=== PATIENT | female | born 1945 | race Caucasian/White ===

== ENCOUNTER 2016-09-01 02:50 | Observation (INO) | payer MEDICARE ==
[2016-09-01] MEDS ORDERED: ONDANSETRON HCL 4 MG/2 ML VIAL ONE ×3 (03:15→08:35)
[2016-09-01 03:27] LABS: BASOPHILS 0.2 % (0.0-2.0); EOSINOPHILS 0.7 % (0.0-6.0); EOSINOPHILS# 0.1 X 10^3uL (0.0-0.4); HEMATOCRIT 46.4 % (36.0-48.0); HEMOGLOBIN 15.9 g/dL (12.0-16.0); LYMPHOCYTES 6.8 % (20.0-40.0); LYMPHOCYTES# 0.7 X 10^3uL (0.8-3.8); MEAN CELL VOLUME 86.7 fL (80.0-100.0); MEAN CORPUS. HGB CONCENTRATION 34.4 g/dL (32.0-36.0); MEAN CORPUSCULAR HEMOGLOBIN 29.8 pg (29.0-35.0); MEAN PLATELET VOLUME 8.7 fL (7.4-10.4); MONOCYTES 4.9 % (2.0-10.0); MONOCYTES# 0.5 X 10^3uL (0.2-1.0); NEUTROPHILS# 9.5 X 10^3uL (2.6-6.7); RED BLOOD COUNT 5.35 X 10^6uL (4.20-6.10); RED CELL DISTRIBUTION WIDTH 11.6 % (11.5-14.5); WHITE BLOOD COUNT 10.8 X 10^3uL (3.9-10.7)
[2016-09-01 03:33] LABS: ALBUMIN 4.6 g/dL (3.5-5.0); BILIRUBIN, DIRECT 0.2 mg/dL (0.0-0.4); BILIRUBIN, TOTAL 0.8 mg/dL (0.2-1.3); CALCIUM 9.8 mg/dL (8.4-10.2); POTASSIUM 3.6 mmol/L (3.5-5.1)
[2016-09-01 03:34] LABS: NEUTROPHILS 87.4 % (54.0-75.0)
[2016-09-01] MEDS ORDERED: NORMAL SALINE 500 ML IV ONE (04:27)
--- NOTE | 2016-09-01 07:50 | CT REPORT ---
HISTORY: Diffuse abdominal pain with nausea and vomiting. COMPARISON: None. TECHNIQUE: This examination was performed using automated exposure control, adjustment of mA or kV according to patient size, and/or use of iterative reconstruction technique. Multiple contiguous axial images were obtained from the lung bases through the pubic symphysis following administration of intravenous con trast. 100cc Isovue contrast. FINDINGS: The lung bases are clear. No effusions. No hiatal hernia. There are fluid-filled dilated loops of small bowel in the right abdomen. This is accompanied with so me scattered small mesenteric lymph nodes and mild mesenteric edema. There is no john bowel obstruct ion. No free air or free fluid. No pneumatosis. A normal appendix is not definitively visualized. The colon remains decompressed. The liver, spleen, pancreas and adrenals are normal. No renal mass or hydronephrosis. No abdominal ao rtic aneurysm or retroperitoneal lymphadenopathy. Scans of the pelvis demonstrate no focal mass or free fluid. No destructive or blastic osseous proces s. IMPRESSION: 1. Findings suggesting enteritis and/or mild ileus. Results were discussed with Dr. Glasgow on September 01, 2016. Final Electronic Signature: This report was electronically signed by Lalo Salcido MD on 09/01/2016 7:4 8 AM. sross /
[2016-09-01] MEDS ORDERED: HOME MEDICATION LIST NEEDED 1 EA EACH MC ONE (08:42)
[2016-09-01] MEDS ORDERED: NORMAL SALINE 1,000 ML IV SCH (09:00)
--- NOTE | 2016-09-01 09:48 | ER NURSING DOCUMENTATION ---
Nurse's Notes [facility] Name:Regina Alcala Age:70 yrs Sex:Female :1945 Arrival Date:09/01/2016 Time:02:50 Bed4 Private MD:Physician, No Diagnosis:Abdominal Pain, Unspecified;Vomiting - Dehydration Presentation: 09/01 02:53 Acuity: KARL 3 sc1 02:54 Presenting complaint: Patient states: nausea and vomiting for the last 2 hours. Vomited sc1 approx. 6-7 times. Denies diarrhea. Transition of care: Home. Notified ED Physician of patient's arrival and CC Dr. Jewell notified. 02:54 Method Of Arrival: Private Vehicle sc1 Triage Assessment: 02:59 General: Appears in no apparent distress, well developed, well nourished, well groomed, sc1 Behavior is cooperative, pleasant. Pain: Complains of pain in abdomen. GI: Reports nausea, vomiting. Historical: - Allergies: PENICILLINS; Erythromycin; Morphine; - Home Meds: 1. None - PMHx: Breast CA; - PSHx: Appendectomy; MASTECTOMY, LEFT; MASTECTOMY, RIGHT; - Tetanus: < 10 years. - Ebola Screening: : Patient negative for fever greater than or equal to 101.5 degrees Fahrenheit, and additional compatible Ebola Virus Disease symptoms. Patient denies exposure to infectious person. Patient denies travel to an Ebola-affected area in the 21 days before illness onset. No symptoms or risks identified at this time. . - Immunization history: Pneumococcal vaccine is up to date, Flu Vaccine < 1 year. - Social history: Smoking status: Patient states was never smoker of tobacco. Patient/guardian denies using alcohol, street drugs, IV drugs, marijuana. Screenin:09 Infectious Disease Risk None. Abuse screen: Denies threats or abuse. Nutritional sc1 screening: No deficits noted. Assessment: 07:25 General: pt appears to be sleeping.. st 09:30 General: pt resting quietly states she is feeling much better.. st Vital Signs: 03:00 BP 147 / 93; Pulse 112; Resp 18; Temp 97.6; Pulse Ox 92% on R/A; sc1 06:04 Pulse Ox 94% on 2 lpm NC; st 08:26 BP 146 / 88 (auto/); st 08:27 BP 146 / 88; Pulse 118; Pulse Ox 90% on R/A; Pain 10/10; st 08:30 BP 128 / 85 (auto/); st 08:34 Pulse Ox 91% ; st 09:27 BP 129 / 86 (auto/); Pulse Ox 92% on R/A; st 09:30 Pain 0/10; st Louann Coma Score: 03:00 Eye Response: spontaneous(4). Verbal Response: oriented(5). Motor Response: obeys cd commands(6). Total: 15. ED Course: 02:51 Patient arrived in ED. em2 02:51 Physician, No is Private Physician. em2 02:53 Krissy Ramirez, RN is Primary Nurse. sc1 02:53 Triage completed. sc1 03:00 Notified ED Physician of patient's arrival and chief complaint. Dr. Jewell notified. sc1 Allergy Band Placed Arm band placed on Bed in low position Call Light in Reach Gowned HOB Elevated. 03:05 Inserted saline lock: 20 gauge in left antecubital area and blood collected. em1 03:20 Jayjay Jewell MD is Attending Physician. cd 06:[address] dnn 06:54 Patient moved back from [place]. dnn 08:18 Dennis Farmer MD is Admitting Physician. cd 08:49 Patient moved to [facility]. mk 09:14 Patient moved back from [facility]. mk Administered Medications: 03:09 Drug: NS 0.9% 1000 ml; Route: IV; Rate: bolus; Site: left antecubital; Delivery: sc1 Raywick Tubing; 04:11 Follow up: IV Status: Completed infusion; IV Intake: 1000ml sc1 03:09 Drug: Zofran 4 mg; Route: IVP; Infused Over: 2 mins; Site: left antecubital; sc1 04:53 Follow up: Response: No adverse reaction; Nausea is decreased sc1 04:11 Drug: NS 0.9% 500 ml; Route: IV; Rate: bolus; Site: left antecubital; Delivery: Raywick sc1 Tubing; 04:50 Follow up: IV Status: Completed infusion; IV Intake: 500ml sc1 04:50 Drug: NS 0.9% 1000 ml; Route: IV; Rate: 150 ml/hr; Site: left antecubital; Delivery: sc1 Raywick Tubing; 09:47 Follow up: IV Status: Completed infusion; IV Intake: 1000ml st 05:15 Drug: Zofran 4 mg; Route: IVP; Infused Over: 2 mins; Site: left antecubital; de1 06:06 Follow up: Response: No adverse reaction sc1 06:08 Drug: Phenergan 6.25 mg; Route: IVP; Site: left antecubital; de1 09:47 Follow up: Response: Nausea unchanged st 08:27 Drug: Dilaudid 0.5 mg; Route: IVP; Site: left antecubital; st 09:31 Follow up: Response: Pain is decreased st 08:28 Drug: Zofran 8 mg; Route: IVP; Infused Over: 2 mins; Site: left antecubital; st 09:32 Follow up: Response: Nausea is decreased st Point of Care Testing: Urine Dip: 04:52 pH: 6.5; ; Specific Raywick: 1.015; Ketones: Negative; Glucose: Negative; Protein: sc1 Negative; Leukocytes: Negative; Nitrite: Negative ; Blood: Negative; Bilirubin: Negative ; Urobilinogen: Normal Intake: 04:11 IV: 1000ml; Total: 1000ml. de1 04:50 IV: 500ml; Total: 1500ml. de1 09:47 IV: 1000ml; Total: 2500ml. st Outcome: 08:22 Decision to Admit by Provider. 09:46 Admitted to OR accompanied by nurse, via wheelchair. st 09:46 Condition: stable 09:46 Instructed on need to admit 09:47 Patient [address] the ED. st Signatures: Rachel Jones RN RN st Campbell, Sandy, RN RN de1 Jayjay Jewell MD MD cd Kimbro, Marcy mk Norman, David dnboyd Meinking-tech, Riddhi-tech em1 Meinking-reg, Riddhi-reg em2
[2016-09-01] MEDS ORDERED: FENTANYL 100 MCG/2 ML VIAL ONE (10:38)
[2016-09-01] MEDS ORDERED: NORMAL SALINE FLUSH 10 ML ONE (10:38)
[2016-09-01] MEDS ORDERED: MIDAZOLAM HCL 2 MG/2 ML SYR ONE (10:38)
--- NOTE | 2016-09-01 11:52 | US REPORT ---
Emergent right upper quadrant ultrasound was performed. The gallbladder and biliary tree appear unremarkable. No stones, wall thickening, duct dilatation or fluid collection is identified. The liver and right kidney appear unremarkable. Limited images of the pancreas are unremarkable. The abdominal aorta appears normal. IMPRESSION: Unremarkable emergent right upper quadrant ultrasound. The findings were personally called to Dr. Dennis Farmer upon completion of the examination. [facility]
--- NOTE | 2016-09-01 12:22 | HISTORY & PHYSICAL ---
DATE OF ADMISSION TO OBSERVATION: 09/01/16 GASTROINTESTINAL ANALYTICAL RESEARCH PROGRAM MANAGER: Dr. Luque. PRIMARY CARE PHYSICIAN: Dr. Dennis Farmer. HISTORY OF PRESENT ILLNESS: This 70-year-old [place] summer resident saw me yesterday in the clinic for a 3-week history of intermittent upper abdominal pain. At the time her pain had resolved, but she described previous episodes of a fullness in the upper abdomen primarily epigastrium. This seemed to be triggered by fatty food and had totally resolved after avoiding any fatty foods for 24 hours. It initially was unassociated with nausea and vomiting, however, last night at around 2 a.m. she awoke with nausea and vomiting and a more diffuse abdominal pain. She came this morning to the ER unable to keep any liquids down and with a moderately severe generalized abdominal achiness. In the ED she was worked up with a CAT scan that showed an ileus pattern but no other obvious abnormalities. Her labs had a minimal leukocytosis with left shift. She was moderately dehydrated and was given a liter of IV normal saline. Dr. Glasgow and I elected to admit her for observation. PAST MEDICAL HISTORY 1. Breast cancer in the distant past without evidence of recurrence. 2. Mild intermittent asthma currently without symptoms despite not current treatment. 3. Fairly severe hypercholesterolemia - familial. 4. Intolerance to statin drugs due to myalgias. 5. DDD of the cervical spine. MEDICATIONS ON ADMISSION: None. Yesterday I advised starting on omeprazole 20 mg q.a.m. and pravastatin 10 mg q.h.s. 3 days a week, but she has not started either of these. ALLERGIES: Morphine, erythromycin and penicillin. SOCIAL HISTORY: The patient has a full code status. She is a summer resident here in [facility], wintering in [place]. She has never smoked. PHYSICAL EXAMINATION VITAL SIGNS: In the emergency department are not currently available to me. HEENT: Mouth with dry oral mucosa. NECK: No adenopathy. LUNGS: Clear. HEART: RRR, no murmur. ABDOMEN: After pain medicines: Soft and nontender. No masses or hepatosplenomegaly. Earlier she was very tender diffusely. EXTREMITIES: No edema. LABORATORY DATA: White count was 10,800 with 87% neutrophils and 7% lymphs, hemoglobin at 16, hematocrit 46, and platelets were 295,000. Sodium was 142, potassium 3.6, chloride 105, CO2 23, creatinine 1.0 and glucose 127 nonfasting. Her LFTs are all normal and lipase was 94. ULTRASOUND: An ultrasound of the right upper quadrant is preliminary negative. In the last year she had a cardiac cath and CT that was normal according to the patient. She also had carotid Doppler exams that were negative for plaque. EKG: Pending. IMAGING: A CT of the abdomen with IV contrast showed an ileus pattern but no other obvious abnormalities. IMPRESSION 1. Three weeks of intermittent upper abdominal pain now with acute nausea and vomiting. Etiologies could include peptic ulcer disease, cholecystitis (but negative ultrasound) or ileus. 2. Dehydration due to nausea and vomiting. 3. Distal history of breast cancer without evidence of recurrence. 4. Probable familial hypercholesterolemia but without evidence of cardiovascular disease. PLAN: The patient initially had ultrasound and now will be getting an EGD from Dr. Luque. I will give her Nexium IV and IV fluids. MTDD
--- NOTE | 2016-09-01 13:10 | CONSULTATION ---
DATE OF CONSULTATION: 09/01/16 REASON FOR CONSULTATION: Abdominal pain, nausea and vomiting. CONSULTING PHYSICIAN: Dr. Farmer. CHIEF COMPLAINT: Abdominal pain, nausea and vomiting. HISTORY OF PRESENT ILLNESS: The patient says that she awoke from her sleep at 12:30 with severe crampy primarily upper abdominal pain associated with profuse vomiting. She did not have diarrhea. She came into the ER. She was given pain medication and hydrated and she is feeling better now. She had a CAT scan that might show an ileus or some sort of enteritis but it is a fairly soft finding. An abdominal ultrasound was done and is pending. She says that 2 weeks ago she had a similar episode that lasted for 4 days but it had diarrhea. She also notes that several friends of hers that she was eating with 2 or 3 days ago had the same symptoms. PAST MEDICAL HISTORY: Notable for an appendectomy. She has had a mastectomy. She has had liposuction and she had tubal ligation and a bladder sling. MEDICATIONS: None. ALLERGIES: Morphine. FAMILY HISTORY: Notable for colon cancer in her mother at age 95. The patient had a colonoscopy a couple of years ago for this. REVIEW OF SYSTEMS: Negative for weight loss. She generally recovered from her last episode of nausea and vomiting noted above except for a little bit of nausea in between but generally was feeling well. Has had no arthralgias, no perianal disease, no blood in the stool. No fevers, chills or rigors. No back or flank pain. No hematuria or dysuria. No skin rash. PHYSICAL EXAMINATION GENERAL: The patient is a pleasant woman who appears to be well. She is well- developed, well-nourished. She is overweight. HEENT: Sclera are anicteric. Conjunctiva are pink. Oropharynx normal. NECK: Supple. No lymphadenopathy. LUNGS: Clear to auscultation and percussion. CARDIAC: S1, S2 normal. No gallops, rubs or murmurs. ABDOMEN: Obese. There is no mass or tenderness. The bowel sounds are normal. She is not distended. There is no tympany. She is entirely nontender. There is no Rosa sign. EXTREMITIES: Warm, dry and perfuse. MENTAL STATUS: Normal. NEUROLOGIC: Grossly nonfocal. SKIN: Free of rash. LABORATORY: White count at 3 a.m. was 11,000 with a left shift. The BUN was 22 and creatinine of 1. Glucose is 127. LFTs are normal. CT scan is as noted above. IMPRESSION: This is probably a gastroenteritis of some sort, although as noted above she had a similar episode a couple of weeks ago. There is a small chance that she could have peptic ulcer disease as she could have some sort of enteritis such as Crohns disease, although given her age this would be very unusual onset, but nonetheless it is possible. RECOMMENDATION: I think we should go ahead and do an EGD on her to be sure she does not have peptic ulcer disease and if that is negative I would hydrate her, watch her and try to reintroduce a diet. If there is any question about her having enteritis other than an infectious enteritis, would get a CT enterography on her. Copy to Dr. Marleny BANSAL
[2016-09-01] MEDS: ONDANSETRON HCL 4 MG/2 ML VIAL IV PRN ×2 (13:21→18:43)
[2016-09-01] MEDS ORDERED: PROBIOTIC 1 CAP CAPSULE PO SCH (13:30)
[2016-09-01 16:39] LABS: HEMATOCRIT 37.5 % (36.0-48.0); HEMOGLOBIN 12.9 g/dL (12.0-16.0); MEAN CELL VOLUME 86.4 fL (80.0-100.0); MEAN CORPUS. HGB CONCENTRATION 34.5 g/dL (32.0-36.0); MEAN CORPUSCULAR HEMOGLOBIN 29.8 pg (29.0-35.0); MEAN PLATELET VOLUME 8.4 fL (7.4-10.4); PLATELET COUNT 223 X 10^3uL (130-440); RED BLOOD COUNT 4.34 X 10^6uL (4.20-6.10); RED CELL DISTRIBUTION WIDTH 11.8 % (11.5-14.5); WHITE BLOOD COUNT 5.6 X 10^3uL (3.9-10.7)
[2016-09-01 16:40] LABS: BAND% (Manual) 4 % (0.0-1.0); LYMPHOCYTE % (Manual) 4 % (20.0-40.0); NEUTROPHIL % (Manual) 87 % (54.0-75.0)
[2016-09-01 16:41] LABS: MONOCYTE % (Manual) 5 % (2.0-10.0)
[2016-09-01 16:42] LABS: PLATELET ESTIMATE ADEQUATE
--- NOTE | 2016-09-01 18:31 | DC SUMMARY: IM Note ---
Discharge Summary: IM/Peds Provider: Date of Admission: 09/01/16 Admitting Provider: IRVIN SON MD Attending Provider: IRVIN SON MD Discharging Provider: IRVIN SON MD Primary Care Provider: Discharge Date: 09/01/16 Consults: 09/01/16 13:13 Gastroenterology Consult [CONS] Routine Reason: acute on chronic abd. pain w/ N/V - Diagnosis (1) Food poisoning Status: Acute (2) Nausea & vomiting Status: Acute (3) Upper abdominal pain Status: Chronic (4) Dehydration Status: Acute Hospital Course: This 70-year-old woman saw me as an outpatient yesterday for a 3 week history of upper abdominal pains. This had worsened considerably, and very early this morning she developed nausea and vomiting. She came to the ER and was admitted for observation because of the severity of her vomiting and because of a subacute upper abdominal pain history. Workup including CT scan, right upper quadrant ultrasound, and EGD failed to show an exact etiology. Later in the day we discovered that 20 people who ate a Setswana salad at the green party she attended 2 days earlier have now developed food poisoning. In retrospect, I suspect she had to issues. One is the intermittent upper abdominal pain over the last 3 weeks, which most likely with some minor dyspepsia. The second is acute food poisoning over the last 2 days. Fortunately both of these issues seem to have resolved. She had no further vomiting today and was able to keep down liquids. She is afraid to eat, but likely will not have major trouble staying hydrated. I will go ahead and discharge her this evening with instructions to drink ample fluids and use Zofran ODT 4 mg as needed for nausea if it recurs. I will follow-up with her next week to see if her upper abdominal symptoms have resolved. If not she could try an OTC acid apiarist as needed. - Time Spent with Patient Total time spent providing and/or coordinating discharge services: Discharge - Patient/Caregiver Discharge Instructions Activity Level: As tolerated Diet: Regular Additional Instructions: Drink ample fluids Follow up: IRVIN SON MD [Primary Care Provider] - 1 Week Home Medications: Ondansetron Odt [Zofran Odt*] 4 mg PO Q6H PRN #5 mg PRN Reason: Nausea/Vomiting, Can'T Take Po Disposition: HOME, SELF-CARE Discharge Summary Data - Medication History Medication History: Home Medications Ondansetron Odt [Zofran Odt*] 4 mg PO Q6H PRN #5 mg 09/01/16 Vitamin E 200 unit PO DAILY 09/01/16 Inpatient Medications 09/01/16 13:13 Ondansetron HCl [Zofran] 4 mg IV Q6H PRN 09/01/16 13:30 Probiotic [Otilia-Q Capsule] 1 cap PO DAILY 09/02/16 10:00 Pantoprazole [Protonix IV] 40 mg IV ONCE@1000 Procedures and tests throughout hospitalization: Completed Lab Orders 09/01/16 16:05 CBC WITHOUT A DIFFERENTIAL [HEM] Routine MANUAL DIFFERENTIAL [HEM] Routine Pending Orders 09/01/16 13:13 Gastroenterology Consult [CONS] Routine Ondansetron HCl [Zofran] 4 mg IV Q6H PRN 09/01/16 13:15 Advance diet as tolerated . 09/01/16 13:30 Probiotic [Otilia-Q Capsule] 1 cap PO DAILY 09/01/16 18:24 Remove Peripheral IV ONCE 09/01/16 20:00 Discharge ONCE 09/01/16 Dinner Low Fat 09/02/16 10:00 Pantoprazole [Protonix IV] 40 mg IV ONCE@1000 Labs on day of discharge: Labs from last 24 hours 09/01/16 16:05 WBC 5.6 RBC 4.34 Hgb 12.9 Hct 37.5 MCV 86.4 MCH 29.8 MCHC 34.5 RDW 11.8 Plt Count 223 MPV 8.4 Total Counted 100 Neutrophils % Cancelled Neutrophils % (Manual) 87 H Band Neuts % (Manual) 4 H Lymphocytes % Cancelled Lymphocytes % (Manual) 4 L Monocytes % (Manual) 5 Eosinophils % Cancelled Basophils % Cancelled Neutrophils # Cancelled Lymphocytes # Cancelled Monocytes Cancelled Monocytes # Cancelled Eosinophils # Cancelled Basophils # Cancelled Platelet Estimate Adequate IM: Discharge Physical Exam - I&O/Vital Signs I&O: Intake & Output 09/01/16 09/01/16 09/01/16 05:59 13:59 21:59 Weight 76.204 kg Vital Signs: Last Vital Signs Temp 37.6 C 09/01/16 15:00 Pulse 97 H 09/01/16 15:00 Resp 20 09/01/16 15:00 BP 112/63 09/01/16 15:00 Pulse Ox 90 09/01/16 15:00 Oxygen Flow Rate 1 Oxygen Delivery Method Room Air - Constitutional General appearance: Present: cooperative - ENT ENT exam: Present: mucous membranes moist - Respiratory Respiratory exam: Present: clear - Cardiovascular Cardiovascular exam: Present: RRR - GI/Abdominal GI/Abdominal exam: Present: soft. Absent: distended, tenderness - Extremities Exam Extremities exam: Absent: edema
[2016-09-01 18:36] VITALS: BP 103/62; PULSE 98; RESP 16; TEMP 99.4; O2SAT 93
[2016-09-02] MEDS ORDERED: PANTOPRAZOLE 40 MG VIAL IV SCH (10:00)
[2016-09-02] MEDS ORDERED: PANTOPRAZOLE 40 MG VIAL IV ONE (10:00)
--- NOTE | 2016-09-03 09:48 | ER PHYSICIAN DOCUMENTATION ---
Physician Documentation [facility] Name:Regina Alcala Age:70 yrs Sex:Female :1945 Arrival Date:09/01/2016 Time:02:50 Bed4 Private MD:Physician, [facility] Jayjay Tran Disposition: 09/01 10:00 Chart complete. cd Disposition: 09/01/16 08:22 Admit ordered for Dennis Farmer. Preliminary diagnosis are Abdominal Pain, Unspecified, Vomiting - Dehydration. - Bed requested for Medical/Surgical. - Condition is Good. - Problem is new. - Symptoms have improved. 23 HR OBS Yes HPI: 03:00 This 70 yrs old Female presents to ER via Private Vehicle with complaints of cd Nausea/Vomiting. 03:00 The patient presents to the emergency department with nausea, that is moderate, with cd vomiting, 6 times since the onset of symptoms, described as clear fluid, with associated abdominal pain, of the right upper quadrant and left upper quadrant, described as achy, constant, and does not radiate. Onset: The symptom(s)/episode began/occurred acutely, today. Possible causes: unknown. The symptoms are aggravated by food , The symptoms are alleviated by nothing. Associated signs and symptoms: Pertinent positives: abdominal pain, anorexia, nausea, vomiting, Pertinent negatives: diarrhea, dysuria, fever, GI bleeding. Severity of symptoms: At their worst the symptoms were moderate in the emergency department the symptoms are unchanged. The patient has been recently seen by a physician: the patient's primary care provider, Dr. Farmer, a family practitioner, at a clinic, yesterday, with similar presenting complaints, Dr. Farmer was concerned about a possible GB problems / Cholecystitis. Historical: - Allergies: PENICILLINS; Erythromycin; Morphine; - Home Meds: 1. None - PMHx: Breast CA; - PSHx: Appendectomy; MASTECTOMY, LEFT; MASTECTOMY, RIGHT; - Tetanus: < 10 years. - Ebola Screening: : Patient negative for fever greater than or equal to 101.5 degrees Fahrenheit, and additional compatible Ebola Virus Disease symptoms. Patient denies exposure to infectious person. Patient denies travel to an Ebola-affected area in the 21 days before illness onset. No symptoms or risks identified at this time. . - Immunization history: Pneumococcal vaccine is up to date, Flu Vaccine < 1 year. - Social history: Smoking status: Patient states was never smoker of tobacco. Patient/guardian denies using alcohol, street drugs, IV drugs, marijuana. ROS: 03:00 ENT: Negative for injury, pain, epistaxis and discharge. cd Neck: Negative for injury, pain, stiffness and swelling. Cardiovascular: Negative for chest pain, palpitations, edema and pleuritic pain. Respiratory: Negative for shortness of breath, dyspnea on exertion, cough, sputum production, wheezing, hemoptysis and pleuritic chest pain. : Negative for injury, bleeding, discharge, dysuria, frequency, urgency and swelling. MS/Extremity: Negative for injury, deformity, edema, calf tenderness, pain or coldness. Skin: Negative for injury, rash, itching and discoloration. 03:00 Neuro: Negative for headache, weakness, numbness, tingling, and seizure. cd 03:00 Constitutional: Positive for poor PO intake, Negative for chills, fever. 03:00 Abdomen/GI: Positive for abdominal pain, nausea, vomiting, anorexia, Negative for diarrhea, constipation, abdominal distension, hematemesis, black/tarry stool, rectal bleeding. 03:00 Back: Negative for pain at rest. 03:00 All other systems are negative. Exam: Eyes: Pupils equal round and reactive to light, extra-ocular motions intact. Lids and lashes normal. Conjunctiva and sclera are non-icteric and not injected. Cornea within normal limits. Periorbital areas with no swelling, redness, or edema. ENT: Nares patent. No nasal discharge, no septal abnormalities noted. Tympanic membranes are normal and external auditory canals are clear. Oropharynx with no redness, swelling, or masses, exudates, or evidence of obstruction, uvula midline. Mucous membranes moist. Neck: Trachea midline, no thyromegaly or masses palpated, and no cervical lymphadenopathy. Supple, full range of motion without nuchal rigidity, or vertebral point tenderness. No Meningismus. 03:00 Chest/axilla: Normal chest wall appearance and motion. Nontender with no deformity. cd No lesions are appreciated. Back: No spinal tenderness. No costovertebral tenderness. Full range of motion. Skin: Warm, dry with normal turgor. Normal color with no rashes, no lesions, and no evidence of cellulitis. MS/ Extremity: Pulses equal, no cyanosis. Neurovascular intact. Full, normal range of motion. 03:00 Neuro: Awake and alert, GCS 15, oriented to person, place, time, and situation. Cranial nerves II-XII grossly intact. Motor strength 5/5 in all extremities. Sensory grossly intact. Cerebellar exam normal. Normal gait. 03:00 Constitutional: The patient appears alert, awake, non-diaphoretic, non-toxic, well developed, well nourished, anxious, in obvious distress, moderately distressed. 03:00 Cardiovascular: Rate: tachycardic, Rhythm: regular, Pulses: no pulse deficits are appreciated. 03:00 Respiratory: Exam negative for acute changes, Breath sounds: are normal, clear throughout. 03:00 Abdomen/GI: Inspection: abdomen appears normal, Bowel sounds: diminished, Palpation: mild abdominal tenderness, in the right upper quadrant, mass, is not appreciated, rebound tenderness, is not appreciated, voluntary guarding, is not appreciated, involuntary guarding, is not appreciated, no appreciated organomegaly, Indicators: McBurney's point is not tender, Rosa's sign is positive. 03:00 Skin: Exam negative for acute changes. Vital Signs: 03:00 BP 147 / 93; Pulse 112; Resp 18; Temp 97.6; Pulse Ox 92% on R/A; sc1 06:04 Pulse Ox 94% on 2 lpm NC; st 08:26 BP 146 / 88 (auto/); st 08:27 BP 146 / 88; Pulse 118; Pulse Ox 90% on R/A; Pain 10/10; st 08:30 BP 128 / 85 (auto/); st 08:34 Pulse Ox 91% ; st 09:27 BP 129 / 86 (auto/); Pulse Ox 92% on R/A; st 09:30 Pain 0/10; st Randi Coma Score: 03:00 Eye Response: spontaneous(4). Verbal Response: oriented(5). Motor Response: obeys cd commands(6). Total: 15. Procedures: 03:40 Ultrasound: Biliary ultrasound performed. Indications: RUQ/epigastric pain, Views cd obtained: transverse view, Findings: no gallstones visualized, Impression: negative exam. MDM: 03:05 Data interpreted: Pulse oximetry: on room air is 92 %. Interpretation: normal. cd 03:15 Differential diagnosis: Nonspecific abd pain, cholecystitis, pancreatitis, cd diverticulitis, viral gastroenteritis, gastroenteritis, Dehydration. Data reviewed: vital signs, nurses notes, old medical records, and as a result, I will continue to observe the patient, administer IV fluids, NS bolus, NS maintenence. 03:20 Patient medically screened. 06:50 Counseling: I had a detailed discussion with the patient and/or guardian regarding: the cd historical points, exam findings, and any diagnostic results supporting the discharge/admit diagnosis, lab results, radiology results, the need for further work-up and treatment in the hospital, risk of leaving the Emergency Department. Response to treatment: the patient's symptoms have mildly improved after treatment, and as a result, I will admit patient. 09/01 03:34 Order name: CBC AUTO DIF, MDIF/RMOR IF IND; Complete Time: 05:01 EDMS 09/01 05:01 Interpretation: Normal Except: WHITE BLOOD COUNT 10.8; NEUTROPHILS 87.4; Elevated WBC cd with Left shift. 09/01 03:35 Order name: BASIC METABOLIC PANEL; Complete Time: 05:01 EDMS 09/01 05:01 Interpretation: Normal. 09/01 03:35 Order name: HEPATIC PANEL; Complete Time: 05:01 EDMS 09/01 05:01 Interpretation: Normal. 09/01 03:35 Order name: LIPASE; Complete Time: 05:01 EDMS 09/01 05:01 Interpretation: Normal. 09/01 16:40 Order name: CBC WITHOUT A DIFFERENTIAL; Complete Time: 09:51 EDMS 09/01 16:42 Order name: MANUAL DIFFERENTIAL; Complete Time: 09:51 EDMS 09/01 07:51 Order name: CAT SCAN; ABD/PEL W [id number]; Complete Time: 09:51 EDMS 09/02 09:51 Interpretation: Abnormal: See Radiologist Report. 09/01 12:15 Order name: US ABD LIMITED [id number]; Complete Time: 09:51 EDMS 09/01 04:52 Order name: Urine Dip; Complete Time: 04:52 sc1 Dispensed Medications: 03:09 Drug: NS 0.9% 1000 ml; Route: IV; Rate: bolus; Site: left antecubital; Delivery: sc1 [place] Tubing; 04:11 Follow up: IV Status: Completed infusion; IV Intake: 1000ml sc1 03:09 Drug: Zofran 4 mg; Route: IVP; Infused Over: 2 mins; Site: left antecubital; mn1 04:53 Follow up: Response: No adverse reaction; Nausea is decreased [facility] [place] 04:11 Drug: NS 0.9% 500 ml; Route: IV; Rate: bolus; Site: left antecubital; Delivery: [place] sc1 Tubing; 04:50 Follow up: IV Status: Completed infusion; IV Intake: 500ml [facility] [place] 04:50 Drug: NS 0.9% 1000 ml; Route: IV; Rate: 150 ml/hr; Site: left antecubital; Delivery: sc1 [place] Tubing; 09:47 Follow up: IV Status: Completed infusion; IV Intake: 1000ml st 05:15 Drug: Zofran 4 mg; Route: IVP; Infused Over: 2 mins; Site: left antecubital; sc1 06:06 Follow up: Response: No adverse reaction [facility] 06:08 Drug: Phenergan 6.25 mg; Route: IVP; Site: left antecubital; mn1 09:47 Follow up: Response: Nausea unchanged st 08:27 Drug: Dilaudid 0.5 mg; Route: IVP; Site: left antecubital; st 09:31 Follow up: Response: Pain is decreased st 08:28 Drug: Zofran 8 mg; Route: IVP; Infused Over: 2 mins; Site: left antecubital; st 09:32 Follow up: Response: Nausea is decreased st Point of Care Testing: Urine Dip: 04:52 pH: 6.5; ; Specific [place]: 1.015; Ketones: Negative; Glucose: Negative; Protein: sc1 Negative; Leukocytes: Negative; Nitrite: Negative ; Blood: Negative; Bilirubin: Negative ; Urobilinogen: Normal Signatures: Rachel Jones, RN RN st Krissy Ramirez, RN RN sc1 Jayjay Jewell MD MD cd
== END 2016-09-01 20:00 | disposition home or self-care (01) ==
LOC: ER 02:50 → IN 09:05
PROVIDERS: ADMIT Family Medicine; ATTEND Family Medicine
DX: A05.9 Bacterial foodborne intoxication, unspecified (principal); E86.0 Dehydration; Z85.3 Personal history of malignant neoplasm of breast; M50.30 Other cervical disc degeneration, unspecified cervical region; J45.909 Unspecified asthma, uncomplicated; R10.9 Unspecified abdominal pain
CPT/HCPCS: 43239; 74177; 76705; 80048; 80076; 83690; 85007; 85025; 85027; 88305; 88312; 93005; 93010; 96361; 96374; 96375; 96376; 99285; G0378; J1170; J2250; J2405; J2550; J3010; J7030; J7040